=== PATIENT | male | born 1965 | race Asian ===

== ENCOUNTER → 2024-01-16 | Outpatient (CLI) | payer SELFPAY | LOC: WSC 14:04 | DX: M54.50 Low back pain, unspecified (principal) ==

== ENCOUNTER → 2024-01-21 | Outpatient (CLI) | payer SELFPAY | LOC: WSC 13:30 | DX: M54.50 Low back pain, unspecified (principal); M54.2 Cervicalgia ==

== ENCOUNTER 2024-01-28 11:15 | Outpatient (RCR) | payer OTHER | END 2024-02-04 | LOC: WSPT | DX: M54.50 Low back pain, unspecified (principal) ==

== ENCOUNTER → 2024-01-28 | Outpatient (CLI) | payer SELFPAY | LOC: WSPT 13:46 | DX: M54.50 Low back pain, unspecified (principal) ==

== ENCOUNTER → 2024-02-05 | Outpatient (CLI) | payer SELFPAY | LOC: WSPT 11:08 | DX: M54.50 Low back pain, unspecified (principal); M54.2 Cervicalgia ==

== ENCOUNTER → 2024-02-15 | Outpatient (CLI) | payer SELFPAY | LOC: WSPT 11:00 | DX: M54.50 Low back pain, unspecified (principal); M54.2 Cervicalgia ==

== ENCOUNTER → 2024-03-07 | Outpatient (CLI) | payer SELFPAY | LOC: WSPT 13:25 | DX: M54.50 Low back pain, unspecified (principal) ==

== ENCOUNTER → 2024-03-12 | Outpatient (CLI) | payer SELFPAY | LOC: WSPT 12:10 | DX: M54.50 Low back pain, unspecified (principal) ==

== ENCOUNTER → 2024-03-20 | Outpatient (CLI) | payer SELFPAY | LOC: WSPT 10:31 | DX: M54.50 Low back pain, unspecified (principal) ==